=== PATIENT | male | born 1955 | race Caucasian/White ===

== ENCOUNTER 2020-10-27 07:45 | Outpatient (REF) | payer MEDICARE, MEDICAID, SELFPAY ==
[2020-10-27 12:14] LABS: Alanine Aminotransferase 14 U/L (0-40); Albumin Level 4.1 g/dL (3.5-5.0); Alkaline Phosphatase 85 U/L (39-117); Anion Gap 14 (12-20); Aspartate Amino Transferase 21 U/L (5-37); Bilirubin Total 0.8 mg/dL (0.0-1.0); Blood Urea Nitrogen 21 mg/dL (9-16); Calcium 9.1 mg/dL (8.4-10.2); Carbon Dioxide 27 mmol/L (22-29); Chloride 103 mmol/L (96-108); Cholesterol 189 mg/dL; Estimated Glomerular Filt Rate > 60; Glucose Fasting 103 mg/dL (60-99); HDL Cholesterol 40 mg/dL; LDL Cholesterol Calculated 131 mg/dl; Potassium 3.9 mmol/L (3.3-5.1); Sodium 140 mmol/L (135-145); Total Protein 7.2 g/dL (6.5-8.0); Triglycerides 93 mg/dL
[2020-10-27 12:15] LABS: Prostate Specific Antigen Scr 2.87 ng/mL (<0.05-4.0); TSH reflex Free T4 0.81 uIU/mL (0.32-4.0)
== END 2020-10-27 07:46 | disposition home or self-care (01) ==
LOC: HO.HMGCLDS 07:45
PROVIDERS: PCP Nurse Practitioner Family; Visit Provider Nurse Practitioner Family
DX: I10 Essential (primary) hypertension (principal); Z12.5 Encounter for screening for malignant neoplasm of prostate
CPT/HCPCS: 36415; 80053; 80061; 84153; 84443

== ENCOUNTER 2021-05-11 07:27 | Outpatient (REF) | payer MEDICARE, MEDICAID, SELFPAY ==
[2021-05-11 11:15] LABS: MANUAL DIFF FLAG NO
[2021-05-11 11:39] LABS: Basophils Absolute Auto 0.1 X10*3/uL (0.0-0.2); Basophils Percent Auto 1.1 % (0-2); Eosinophils Absolute Auto 0.3 X10*3/uL (0.0-0.4); Eosinophils Percent Auto 3.7 % (0-4); Hematocrit 44.9 % (42-52); Hemoglobin 15.2 g/dl (14.0-18.0); Imm Gran Abs Auto 0.14 X10*3/uL (0.00-0.03); Imm Gran Pct Auto 1.6 % (0.0-0.4); Lymphocytes Absolute Auto 2.1 X10*3/uL (1.2-4.9); Lymphocytes Percent Auto 23.9 % (20-40); Mean Corpuscular HGB Conc 33.9 g/dl (31.0-36.0); Mean Corpuscular Hemoglobin 29.2 pg (27.0-33.0); Mean Corpuscular Volume 86.3 fL (80-98); Mean Platelet Volume 8.8 fL (9.4-12.4); Monocytes Absolute Auto 0.8 X10*3/uL (0.1-1.2); Monocytes Percent Auto 9.3 % (2-11); Neutrophils Absolute Auto 5.3 X10*3/uL (2.0-8.3); Neutrophils Percent Auto 60.4 % (45-73); Platelet Count 289 X10*3/uL (160-400); Red Cell Distribution Width 13.4 % (11.0-16.0); White Blood Count 8.7 X10*3/uL (4.8-10.8)
[2021-05-11 11:47] LABS: Appearance Urine CLEAR; Color Urine YELLOW; Glucose Urine UA NEG (NEG); Leukocyte Esterase Urine NEG (NEG); Nitrite Urine NEG (NEG); Urine Blood NEG (NEG); Urine Ketones NEG (NEG); Urine Protein NEG (NEG-TRACE)
[2021-05-11 12:08] LABS: Ferritin 68 ng/mL (20-250); TSH reflex Free T4 0.95 uIU/mL (0.32-4.0)
[2021-05-11 12:16] LABS: Alanine Aminotransferase 18 U/L (0-40); Albumin Level 4.1 g/dL (3.5-5.0); Alkaline Phosphatase 77 U/L (39-117); Anion Gap 11 (12-20); Aspartate Amino Transferase 22 U/L (5-37); Bilirubin Total 0.9 mg/dL (0.0-1.0); Blood Urea Nitrogen 25 mg/dL (9-16); Calcium 9.5 mg/dL (8.4-10.2); Carbon Dioxide 26 mmol/L (22-29); Chloride 107 mmol/L (96-108); Cholesterol 189 mg/dL; Estimated Glomerular Filt Rate > 60; Glucose Fasting 120 mg/dL (60-99); HDL Cholesterol 42 mg/dL; Iron 73 mcg/dL (45-160); LDL Cholesterol Calculated 123 mg/dl; Percent Iron Saturation 21 % (15-50); Potassium 3.9 mmol/L (3.3-5.1); Sodium 140 mmol/L (135-145); Total Iron Binding Capacity 350 mcg/dL (228-428); Total Protein 7.2 g/dL (6.5-8.0); Triglycerides 120 mg/dL; Unsaturated Iron Binding 277 ug/dL
[2021-05-11 12:21] LABS: Folate 15.3 ng/mL (> or = 4.0); Vitamin B12 852 pg/mL (200-900)
[2021-05-17 12:45] LABS: Testosterone, Free 28.2 pg/mL (35.0-155.0); Testosterone, Total 222 ng/dL (250-1100)
== END 2021-05-11 07:28 | disposition home or self-care (01) ==
LOC: HO.HMGCLDS 07:27
PROVIDERS: PCP Nurse Practitioner Family; Visit Provider Nurse Practitioner Family
DX: R53.83 Other fatigue (principal)
CPT/HCPCS: 36415; 80053; 80061; 81003; 82607; 82728; 82746; 83540; 84402; 84403; 84443; 85025

== ENCOUNTER 2022-07-23 08:02 | Outpatient (REF) | payer OTHER, MEDICAID, SELFPAY ==
[2022-07-23 11:14] LABS: MANUAL DIFF FLAG NO
[2022-07-23 11:19] LABS: Appearance Urine Turbid; Color Urine Yellow; Glucose Urine UA Negative (Negative); Leukocyte Esterase Urine Small (1+) (Negative); Nitrite Urine Negative (Negative); PH 5.5 (5.0-9.0); Specific Gravity - Urine 1.025 (1.005-1.025); UMIC TRIGGER UACC YES; Urine Blood Negative (Negative); Urine Ketones Negative (Negative); Urine Protein Negative (Neg-Trace)
[2022-07-23 11:25] LABS: Bacteria Urine None Seen (None Seen); Hyaline Casts Urine 0-2 /LPF (0-2); RBC Urine 0-2 /HPF (0-2); Squamous Epithelial Cell Urine 0-2 /HPF (0-2); UACC Culture Trigger YES
[2022-07-23 11:36] LABS: Basophils Absolute Auto 0.2 X10*3/uL (0.0-0.2); Basophils Percent Auto 1.8 % (0-2); Eosinophils Absolute Auto 0.3 X10*3/uL (0.0-0.4); Eosinophils Percent Auto 3.6 % (0-4); Hematocrit 45.9 % (42.0-52.0); Imm Gran Pct Auto 1.1 % (0.0-0.4); Lymphocytes Absolute Auto 1.9 X10*3/uL (1.2-4.9); Lymphocytes Percent Auto 21.4 % (20-40); Mean Corpuscular HGB Conc 32.7 g/dl (31.0-36.0); Mean Corpuscular Hemoglobin 28.7 pg (27.0-33.0); Mean Corpuscular Volume 87.8 fL (80.0-98.0); Mean Platelet Volume 8.8 fL (9.4-12.4); Monocytes Absolute Auto 0.8 X10*3/uL (0.1-1.2); Monocytes Percent Auto 8.8 % (2-11); Neutrophils Absolute Auto 5.7 x10*3/uL (2.0-8.3); Neutrophils Percent Auto 63.3 % (45-73); Platelet Count 333 X10*3/uL (160-400); Red Blood Count 5.23 X10*6/uL (4.60-5.80); Red Cell Distribution Width 13.2 % (11.0-16.0)
[2022-07-23 13:06] LABS: Alanine Aminotransferase 16 U/L (0-40); Alkaline Phosphatase 84 U/L (39-117); Anion Gap 12 (12-20); Aspartate Amino Transferase 19 U/L (5-37); Bilirubin Total 0.7 mg/dL (0.0-1.0); Blood Urea Nitrogen 28 mg/dL (9-16); Calcium 9.4 mg/dL (8.4-10.2); Carbon Dioxide 28 mmol/L (22-29); Chloride 104 mmol/L (96-108); Cholesterol 186 mg/dL; Estimated Glomerular Filt Rate > 60; Glucose Fasting 143 mg/dL (60-99); HDL Cholesterol 38 mg/dL; LDL Cholesterol Calculated 127 mg/dl; Sodium 140 mmol/L (135-145); TSH reflex Free T4 0.73 uIU/mL (0.32-4.0); Triglycerides 106 mg/dL
== END 2022-07-23 08:03 | disposition home or self-care (01) ==
LOC: HO.HMGCLDS 08:02
PROVIDERS: PCP Nurse Practitioner Family; Visit Provider Nurse Practitioner Family
DX: I10 Essential (primary) hypertension (principal)
CPT/HCPCS: 36415; 80053; 80061; 81001; 84443; 85025; 87086

== ENCOUNTER 2022-07-26 07:49 | Outpatient (REF) | payer OTHER, MEDICAID, SELFPAY ==
[2022-07-26 11:47] LABS: Alanine Aminotransferase 15 U/L (0-40); Alkaline Phosphatase 85 U/L (39-117); Anion Gap 10 (12-20); Aspartate Amino Transferase 18 U/L (5-37); Bilirubin Total 0.7 mg/dL (0.0-1.0); Blood Urea Nitrogen 25 mg/dL (9-16); Calcium 9.2 mg/dL (8.4-10.2); Carbon Dioxide 29 mmol/L (22-29); Chloride 102 mmol/L (96-108); Estimated Glomerular Filt Rate > 60; Glucose Fasting 142 mg/dL (60-99); Potassium 3.7 mmol/L (3.3-5.1); Sodium 137 mmol/L (135-145); Total Protein 6.9 g/dL (6.5-8.0)
[2022-07-26 12:11] LABS: Estimated Average Glucose 126 mg/dL
== END 2022-07-26 07:50 | disposition home or self-care (01) ==
LOC: HO.HMGCLDS 07:49
PROVIDERS: PCP Nurse Practitioner Family; Visit Provider Nurse Practitioner Family
DX: R73.01 Impaired fasting glucose (principal); I10 Essential (primary) hypertension
CPT/HCPCS: 36415; 80053; 83036

== ENCOUNTER 2023-05-09 08:27 | Outpatient (AMB) | payer OTHER, MEDICAID, SELFPAY ==
--- NOTE | 2023-05-09 08:31 | MHC.PC.OV ---
Vital Signs 05/09/23 08:34 Height 6 ft 1 in Weight 248 lb BMI 32.7 BP 120/82 Blood Pressure Location Rt brachial Position Sitting Pulse 74 Pulse Source Pulse Oximeter Pulse Oximetry (%) 96 Oxygen Delivery Method Room Air Intake Visit Reasons: 4 month follow up DM Allergies No Known Allergies Allergy (Verified 05/09/23 08:35) Medication List - Last Reconciled 05/09/23 by KAY Galicia alcohol swabs (Alcohol Prep Pads) 1 pad topically tid; atenolol 25 mg PO DAILY hydrochlorothiazide 25 mg PO QAM lisinopril 40 mg PO DAILY OneTouch Delica Plus Lancet (lancets) bid testing NS OneTouch Ultra Test (blood sugar diagnostic) bid testing NS OneTouch Ultra2 Meter (blood-glucose meter) BID testing NS sertraline 50 mg PO DAILY 90 days sildenafil (Viagra) 50 mg PO DAILY PRN 10 days Tobacco use date assessed: 05/09/23 Fall risk assessment: No Falls in past year Last assessed Fall Risk: 05/09/23 Dental Screening Dental Screen Date: 05/09/23 Did you have a dental visit in the last 12 months?: Yes Did you have a dental problem in the last 6 months where you did not have access to dental care?: No Was dental information given to patient?: Patient has dentist HPI 4 month follow up DM HPI Details Pt is a diabetic, on an ALEXANDRA. A1C in office today is 5.9. Due for microalbumin, this has been ordered. Denies polyuria, polydipsia, and neuropathy. Pt denies any signs and symptoms of hypoglycemia and does know how to correct it. Will start low-dose statin. Labs were already ordered, encouraged pt to have these drawn. [facility] Surgical History H/O colonoscopy History of total right hip replacement Family History Father Unknown family medical history Mother Unknown family medical history Social History Housing: House Alcohol intake: never Patient Tobacco Use Status: Former Tobacco user e-Cigarette/Vaping Use: Never Used Second Hand Smoke Exposure: No service: No Current occupational status: retired and disabled Cognitive needs: No Hearing needs: No Vision needs: Yes Questionnaire Thrive Questionnaire Date Thrive assessed: 02/01/22 AUDIT C Alcohol Use Questionnaire (AUDIT-C) 1. How often do you have a drink containing alcohol?: Never 3. How often do you have six or more drinks on one occasion?: Never Total Score: 0 Score Reviewed/Action Taken: No MERCEDES-7 AMB Questionnaire MERCEDES-7 Date MERCEDES - 7 assessed: 02/01/22 Source: Developed by Drs. Adrian Spears, Delmi Mendez, Jefry Morataya and colleagues, with an educational idalia from [employer]. Review of Systems Const Reports as per HPI Physical exam (Primary Care) Vital Signs: Last Vital Signs Pulse 74 05/09/23 08:34 BP 120/82 05/09/23 08:34 Pulse Ox 96 05/09/23 08:34 Oxygen Delivery Method Room Air 05/09/23 08:34 BMI result Body Mass Index 32.7 Tobacco/Smoking Status: Tobacco use Status Tobacco use date assessed 05/09/23 05/09/23 08:38 Patient Tobacco Use Status Former Tobacco user 05/09/23 08:38 e-Cigarette/Vaping Use Never Used 05/09/23 08:38 Thrive Assessment: Date of Thrive Assessment Date Thrive assessed 02/01/22 05/09/23 08:38 Const General: cooperative Nutritional Appearance: obese Orientation/consciousness: patient oriented x3 Resp Effort & Inspection: normal respiratory effort Auscultation: clear to auscultation bilaterally Cardio Rate: regular rate Rhythm: regular rhythm Heart sounds: S1 normal heart sound present and S2 normal heart sound present Neuro General: patient oriented x3 Extrem Other: bilat feet: + sensation with use of monofilament Psych Appearance: grossly normal Mental Status: mental status grossly normal Speech and movement: Normal speech and movement present Affect: normal affect Attitude: cooperative Thought process: Normal thought process present Thought content: Normal thought content present Insight: Good insight present (Psych) Judgement: Good judgement present (Psych) Results AMB Hemoglobin A1c AMB Hemoglobin A1c 5.9 % Last Edit by YANELIS Wick on 05/09/23 08:52 Results Reviewed Results Reviewed: Laboratory Last Values Hgb A1c (Clinic) 5.9 % (4.0-6.0) 05/09/23 08:51 Assessment and Plan Assessment & Plan (1) Diabetes: Code(s): E11.9 - Type 2 diabetes mellitus without complications Plan: Labs ordered Plan The patient agreed to the use of a biomedical engineering technologist for this encounter. Scribed for KAY Arana by Kiersten Monroe biomedical engineering technologist, on 05/09/2023 at 08:45 EST. Orders: Orders AMB Hemoglobin A1c Today Z13.9 - Encounter for screening, unspecified Medications: New rosuvastatin 5 mg PO DAILY 30 days 30 tabs 4RF Coding Level of Care Code Est Pt Level 3 (95016) Diagnoses Diabetes E11.9
[2023-05-09 08:34] VITALS: BP 120/82; PULSE 74; O2SAT 96; BMI 32.7
== END 2023-05-09 09:06 | disposition home or self-care (01) ==
PROVIDERS: PCP Nurse Practitioner Family; Visit Provider Nurse Practitioner Family
DX: E11.9 Type 2 diabetes mellitus without complications (principal)
CPT/HCPCS: 83036; 99213

== ENCOUNTER 2023-08-22 07:57 | Outpatient (AMB) | payer OTHER, MEDICAID, SELFPAY ==
--- NOTE | 2023-08-22 07:59 | A.OFFPC_ITS ---
Vital Signs 08/22/23 08:02 08/22/23 08:32 Height 6 ft 1 in Weight 244 lb BMI 32.2 BP 134/96 H 120/78 Blood Pressure Location Lt brachial Rt brachial Position Sitting Sitting Pulse 74 Pulse Source Pulse Oximeter Pulse Oximetry (%) 98 Oxygen Delivery Method Room Air Intake Visit Reasons: 3 month fu Intake Note: Patient here to follow up on diabetes. Allergies No Known Allergies Allergy (Verified 08/22/23 08:02) Tobacco use date assessed: 05/09/23 Fall risk assessment: No Falls in past year Last assessed Fall Risk: 08/22/23 HPI 3 month fu HPI Details Patient is here for follow-up for diabetes. He is due for labs and a microalbumin which were ordered back in December. I highly encouraged to get these labs drawn. Denies any polyuria, polydipsia, neuropathy. His eye exam is up-to-date. He understands and symptoms of hypoglycemia and how to correct it. His current A1c is 5.9. Pt is on a ALEXANDRA and a statin. He brought in several values from home, highest was 160. #2 pt reports dysphagia, with solids and liquids, pointing to his mid chest. He further reports more gas and ingestion. Will order a Upper GI Series. [facility] Surgical History H/O colonoscopy History of total right hip replacement Family History Father Unknown family medical history Mother Unknown family medical history Social History Housing: House Alcohol intake: never Patient Tobacco Use Status: Former Tobacco user e-Cigarette/Vaping Use: Never Used Second Hand Smoke Exposure: No service: No Current occupational status: retired and disabled Cognitive needs: No Hearing needs: No Vision needs: Yes Questionnaire Thrive Questionnaire Date Thrive assessed: 02/01/22 MERCEDES-7 AMB Questionnaire MERCEDES-7 Date MERCEDES - 7 assessed: 02/01/22 Source: Developed by Drs. Adrian Spears, Delmi Mendez, Jefry Morataya and colleagues, with an educational idalia from [employer]. Physical exam (Primary Care) Vital Signs: Last Vital Signs Pulse 74 08/22/23 08:02 BP 134/96 H 08/22/23 08:02 Pulse Ox 98 08/22/23 08:02 Oxygen Delivery Method Room Air 08/22/23 08:02 BMI result Body Mass Index 32.2 Tobacco/Smoking Status: Tobacco use Status Tobacco use date assessed 05/09/23 08/22/23 08:05 Patient Tobacco Use Status Former Tobacco user 08/22/23 08:05 e-Cigarette/Vaping Use Never Used 08/22/23 08:05 Thrive Assessment: Date of Thrive Assessment Date Thrive assessed 02/01/22 08/22/23 08:05 Const General: cooperative, healthy appearing and comfortable Resp Effort & Inspection: normal respiratory effort Auscultation: clear to auscultation bilaterally Cardio Rate: regular rate Rhythm: regular rhythm Heart sounds: S1 normal heart sound present, S2 normal heart sound present and no murmurs Psych Speech and movement: Normal speech and movement present Affect: normal affect Attitude: cooperative Insight: Good insight present (Psych) Judgement: Good judgement present (Psych) Results AMB Hemoglobin A1c AMB Hemoglobin A1c 5.9 % Last Edit by YANELIS Wick on 08/22/23 08 :23 Results Reviewed Results Reviewed: Laboratory Last Values Hgb A1c (Clinic) 5.9 % (4.0-6.0) 08/22/23 08:23 Assessment and Plan Assessment & Plan (1) Dysphagia: Code(s): R13.10 - Dysphagia, unspecified Plan: Upper GI series ordered (2) GERD (gastroesophageal reflux disease): Code(s): K21.9 - Gastro-esophageal reflux disease without esophagitis (3) Diabetes: Code(s): E11.9 - Type 2 diabetes mellitus without complications Plan continue same regime Orders: Orders FL upper GI series Today R13.10 - Dysphagia, unspecified AMB EKG-In Office Today K21.9 - Gastro-esophageal reflux disease without esophagitis, R13.10 - Dysphagia, unspecified AMB Hemoglobin A1c Today Z13.9 - Encounter for screening, unspecified Coding Level of Care Code Est Pt Level 3 (59650) Diagnoses Dysphagia R13.10 GERD (gastroesophageal reflux disease) K21.9 Diabetes E11.9
[2023-08-22 08:02] VITALS: BP 134/96; PULSE 74; O2SAT 98; BMI 32.2
[2023-08-22 08:32] VITALS: BP 120/78
== END 2023-08-22 10:44 | disposition home or self-care (01) ==
PROVIDERS: PCP Nurse Practitioner Family; Visit Provider Nurse Practitioner Family
DX: R13.10 Dysphagia, unspecified (principal); K21.9 Gastro-esophageal reflux disease without esophagitis; E11.9 Type 2 diabetes mellitus without complications; Z13.9 Encounter for screening, unspecified
CPT/HCPCS: 83036; 99213

== ENCOUNTER 2023-08-29 08:08 | Outpatient (REF) | payer MEDICARE, MEDICAID, SELFPAY | END 2023-08-29 08:09 | disposition home or self-care (01) | LOC: HO.HMGCLDS 08:08 | PROVIDERS: PCP Nurse Practitioner Family; Visit Provider Nurse Practitioner Family | DX: E11.9 Type 2 diabetes mellitus without complications (principal); R82.90 Unspecified abnormal findings in urine; Z12.5 Encounter for screening for malignant neoplasm of prostate | CPT/HCPCS: 36415; 80053; 80061; 81001; 82043; 82570; 84153; 84443; 85025; 87086 ==

== ENCOUNTER 2023-11-06 09:50 | Outpatient (REF) | payer MEDICARE, MEDICAID, SELFPAY ==
--- NOTE | ~2023-11-06 | FL_ITS ---
EXAMINATION: XR FLUOROSCOPY UPPER GI WITH AIR CLINICAL INFORMATION: Dysphagia COMPARISON: None TECHNIQUE: Fluoroscopic air contrast upper GI examination was performed utilizing standard techniques with thin and thick barium and effervescent granules. Numerous spot images were obtained. FINDINGS: Lateral cine images of the oropharynx and hypopharynx demonstrate normal swallow mechanism with normal epiglottic inversion and soft palate elevation. No tracheal penetration, glottic or subglottic aspiration identified. No nasopharyngeal reflux present. Hypopharyngeal structures appear normal without evidence of mass or diverticulum. There is mild cricopharyngeal achalasia present. Dual and single contrast images of the esophagus demonstrate normal caliber, contour, and mucosal pattern. No evidence of stricture, mass, or ulcerations identified. Esophageal peristalsis was normal. A small type I hiatal hernia is present. Gastroesophageal reflux is seen up to the midesophagus. Dual contrast and single contrast images of the stomach demonstrated a normal contour. No definite gastric rugal fold thickening. There are a few small areas of contrast pooling in the body the stomach that may represent small superficial apthous type ulcers. No masses are seen. Contrast freely passed into the gastric antrum and duodenal bulb without delay. Single and air-contrast images of the duodenal bulb demonstrate no abnormality. The duodenal sweep has a normal appearance, course, and mucosal fold appearance. The imaged proximal jejunum has a normal fold pattern and caliber. FLUOROSCOPY TIME: 4 minutes 47 seconds Number of Spot Images: 12 Number of Cine: 13 DOSE AREA PRODUCT: 4009 uGy-m2 (microgray-meter squared) FL/FL upper GI w air IMPRESSION: 1. Mild cricopharyngeal achalasia 2. Small to moderate sized type I hiatal hernia 3. Moderate gastroesophageal reflux 4. A few small areas of contrast pooling in the body of the stomach. These findings suggest small aphthous type erosions, and possible mild gastritis. Recommend correlation with EGD. This procedure was performed by Erlin Erwin PA-C, and supervised by Dr. Burgos
== END 2023-11-06 09:51 | disposition home or self-care (01) ==
LOC: HO.XRAY 09:50
PROVIDERS: PCP Nurse Practitioner Family; Visit Provider Nurse Practitioner Family
DX: R13.10 Dysphagia, unspecified (principal)
CPT/HCPCS: 74246

== ENCOUNTER → 2023-11-06 09:52 | Outpatient (BNV) | payer MEDICARE, MEDICAID, SELFPAY | PROVIDERS: PCP Nurse Practitioner Family; Visit Provider Physician Assistant Surgical | DX: R13.10 Dysphagia, unspecified (principal) | CPT/HCPCS: 74246 ==

== ENCOUNTER 2023-11-20 11:58 | Outpatient (AMB) | payer MEDICARE, MEDICAID, SELFPAY ==
--- NOTE | 2023-11-20 12:02 | A.OFFVIS_ITS ---
Intake Vital Signs 11/20/23 12:08 Height 6 ft 1 in Weight 255 lb BMI 33.6 BP 132/65 Blood Pressure Location Lt brachial Position Sitting Pulse 63 Intake Visit Reasons: Gastro-esophageal reflux disease without esoph Intake Note: Patient new consult for GERD. Patient cc: abdominal pain on and off, swallowing problems with both solid and liquid, and some diarrhea on and off. 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 Started noticing a few years ago that some certain foods get stuck in upper esophagus. Does not report sx are progressing - sx are with both solids and liquids. Often has to drink more liquid and/or belch to ease the sensation. No unintentional wieght loss, nausea or vomiting, no regurgitation. No changes in bowel habits. Has never had upper endoscopy. Gets q5y colos for fam hx and is up to date (Dr Jordin Miles) Fam hx: brother CRC at 35y.o PCP ordered UGIS which showed: 1. Mild cricopharyngeal achalasia 2. Small to moderate sized type I hiatal hernia 3. Moderate gastroesophageal reflux 4. A few small areas of contrast pooling in the body of the stomach. These findings suggest small aphthous type erosions, and possible mild gastritis. Recommend correlation with EGD. Has been started on omeprazole 20 BID by his PCP. PFSH Surgical History H/O colonoscopy History of total right hip replacement Family History Father Unknown family medical history Mother Unknown family medical history Social History Housing: House Alcohol intake: never Patient Tobacco Use Status: Former Tobacco user e-Cigarette/Vaping Use: Never Used Second Hand Smoke Exposure: No service: No Current occupational status: retired and disabled Cognitive needs: No Hearing needs: No Vision needs: Yes Review of Systems Const All systems reviewed & are unremarkable except as noted in HPI and below Physical Exam Vital Signs: Last Vital Signs Pulse 63 11/20/23 12:08 BP 132/65 11/20/23 12:08 BMI result Body Mass Index 33.6 NAD No overt resp distress Abd nondistended A/Ox3, normal gait Assessment & Plan Assessment & Plan (1) Abnormal barium swallow: Code(s): R93.3 - Abnormal findings on diagnostic imaging of other parts of digestive tract (2) Dysphagia: Code(s): R13.10 - Dysphagia, unspecified (3) Gastritis: Code(s): K29.70 - Gastritis, unspecified, without bleeding Plan Appears to have tight cricpharyngeus based on esophagogram + gastritis. Plan: - EGD with dil to be booked - Cont omeprazole 20 BID - Avoid NSAIDs and smoking FOllow up after EGD Coding Level of Care Code New Pt Level 4 (42863) Diagnoses Abnormal barium swallow R93.3 Dysphagia R13.10 Gastritis K29.70
[2023-11-20 12:08] VITALS: BP 132/65; PULSE 63; BMI 33.6
== END 2023-11-20 13:04 | disposition home or self-care (01) ==
PROVIDERS: PCP Nurse Practitioner Family; Visit Provider Internal Medicine
DX: R93.3 Abnormal findings on diagnostic imaging of other parts of digestive tract (principal); R13.10 Dysphagia, unspecified; K29.70 Gastritis, unspecified, without bleeding
CPT/HCPCS: 99204

== ENCOUNTER → 2023-11-20 11:58 | Outpatient (BNVA) | payer MEDICARE, MEDICAID, SELFPAY | PROVIDERS: PCP Nurse Practitioner Family; Visit Provider Internal Medicine | DX: R93.3 Abnormal findings on diagnostic imaging of other parts of digestive tract (principal); R13.10 Dysphagia, unspecified; K29.70 Gastritis, unspecified, without bleeding | CPT/HCPCS: 99202 ==

== ENCOUNTER 2023-11-26 08:45 | Outpatient (AMB) | payer MEDICARE, MEDICAID, SELFPAY ==
--- NOTE | 2023-11-26 08:46 | A.OFFPC_ITS ---
Vital Signs 11/26/23 08:50 Height 6 ft 1 in Weight 241 lb BMI 31.8 BP 112/78 Blood Pressure Location Rt brachial Position Sitting Pulse 71 Pulse Source Pulse Oximeter Pulse Oximetry (%) 98 Oxygen Delivery Method Room Air Intake Visit Reasons: 3 Month follow up Intake Note: Patient here for diabetes f/u. Allergies No Known Allergies Allergy (Verified 11/26/23 08:50) Medication List - Last Reconciled 11/26/23 by KAY Galicia alcohol swabs (Alcohol Prep Pads) 1 pad topically tid; amoxicillin 2,000 mg (4 x 500 mg) PO ONCE 1 day atenolol 25 mg PO DAILY hydrochlorothiazide 25 mg PO QAM lisinopril 40 mg PO DAILY omeprazole 20 mg PO BID OneTouch Delica Plus Lancet (lancets) bid testing NS OneTouch Ultra Test (blood sugar diagnostic) bid testing NS OneTouch Ultra2 Meter (blood-glucose meter) BID testing NS rosuvastatin 5 mg PO DAILY 30 days sertraline 50 mg PO DAILY 90 days sildenafil (Viagra) 50 mg PO DAILY PRN 10 days Tobacco use date assessed: 11/26/23 Fall risk assessment: No Falls in past year Last assessed Fall Risk: 11/26/23 Dental Screening Dental Screen Date: 11/26/23 Did you have a dental visit in the last 12 months?: Yes Did you have a dental problem in the last 6 months where you did not have access to dental care?: No Was dental information given to patient?: Patient has dentist HPI 3 Month follow up HPI Details Pt is a diabetic, on an ALEXANDRA and a statin. A1C in office today is 6.0. Microalbumin is up to date. Denies polyuria, polydipsia, and neuropathy. Pt denies any signs and symptoms of hypoglycemia and does know how to correct it. Pt has an upcoming eye exam. Pt c/o right heel pain. He reports the most pain when waking up. He reports that the pain improves somewhat throughout the day. ? plantar fasciitis. Will order XR. PFSH Surgical History H/O colonoscopy History of total right hip replacement Family History Father Unknown family medical history Mother Unknown family medical history Social History Housing: House Alcohol intake: never Patient Tobacco Use Status: Former Tobacco user e-Cigarette/Vaping Use: Never Used Second Hand Smoke Exposure: No service: No Current occupational status: retired and disabled Cognitive needs: No Hearing needs: No Vision needs: Yes Questionnaire Thrive Questionnaire Date Thrive assessed: 02/01/22 AUDIT C Alcohol Use Questionnaire (AUDIT-C) 1. How often do you have a drink containing alcohol?: Never 3. How often do you have six or more drinks on one occasion?: Never Total Score: 0 Score Reviewed/Action Taken: No MERCEDES-7 AMB Questionnaire MERCEDES-7 Date MERCEDES - 7 assessed: 02/01/22 Source: Developed by Drs. Adrian Spears, Delmi Mendez, Jefry Morataya and colleagues, with an educational idalia from [employer]. Review of Systems Const Reports as per HPI Physical exam (Primary Care) Vital Signs: Last Vital Signs Pulse 71 11/26/23 08:50 BP 112/78 11/26/23 08:50 Pulse Ox 98 11/26/23 08:50 Oxygen Delivery Method Room Air 11/26/23 08:50 BMI result Body Mass Index 31.8 Tobacco/Smoking Status: Tobacco use Status Tobacco use date assessed 11/26/23 11/26/23 08:53 Patient Tobacco Use Status Former Tobacco user 11/26/23 08:47 e-Cigarette/Vaping Use Never Used 11/26/23 08:47 Thrive Assessment: Date of Thrive Assessment Date Thrive assessed 02/01/22 11/26/23 08:47 Const General: cooperative Nutritional Appearance: obese Orientation/consciousness: patient oriented x3 Resp Effort & Inspection: normal respiratory effort Auscultation: clear to auscultation bilaterally Cardio Rate: regular rate Rhythm: regular rhythm Heart sounds: S1 normal heart sound present and S2 normal heart sound present Neuro General: patient oriented x3 Extrem Other: bilat feet: + sensation with use of monofilament, right foot: tenderness noted with dorsi flexion of toes and palpation of heels Psych Appearance: grossly normal Mental Status: mental status grossly normal Speech and movement: Normal speech and movement present Affect: normal affect Attitude: cooperative Thought process: Normal thought process present Thought content: Normal thought content present Insight: Good insight present (Psych) Judgement: Good judgement present (Psych) Results AMB Hemoglobin A1c AMB Hemoglobin A1c 6.0 % Last Edit by YANELIS Wick on 11/26/23 09 :14 Assessment and Plan Assessment & Plan (1) Diabetes: Code(s): E11.9 - Type 2 diabetes mellitus without complications Plan: Labs ordered (2) Pain of right heel: Code(s): M79.671 - Pain in right foot Plan: XR ordered Plan The patient agreed to the use of a medical insurance verifier for this encounter. Scribed for DELMA Arana-BC by Kiersten Monroe medical insurance verifier, on 11/26/2023 at 09:05 EST. Orders: Orders Comprehensive [place]. Panel Fast Today E11.9 - Type 2 diabetes mellitus without complications TSH reflex Free T4 Today E11.9 - Type 2 diabetes mellitus without complications UA CC w/rflx Micro + Cult Today E11.9 - Type 2 diabetes mellitus without complications XR foot RT 2V Today M79.671 - Pain in right foot AMB Hemoglobin A1c Today Z13.9 - Encounter for screening, unspecified Complete Blood Count Auto Diff Today E11.9 - Type 2 diabetes mellitus without complications Lipid Panel Today E11.9 - Type 2 diabetes mellitus without complications Coding Level of Care Code Est Pt Level 3 (90361) Diagnoses Diabetes E11.9 Pain of right heel M79.671
[2023-11-26 08:50] VITALS: BP 112/78; PULSE 71; O2SAT 98; BMI 31.8
== END 2023-11-26 09:22 | disposition home or self-care (01) ==
PROVIDERS: PCP Nurse Practitioner Family; Visit Provider Nurse Practitioner Family
DX: E11.9 Type 2 diabetes mellitus without complications (principal); M79.671 Pain in right foot
CPT/HCPCS: 83036; 99213

== ENCOUNTER 2023-11-26 09:23 | Outpatient (REF) | payer MEDICARE, MEDICAID, SELFPAY ==
--- NOTE | ~2023-11-26 | XR_ITS ---
EXAMINATION: XR FOOT, RIGHT CLINICAL INFORMATION: Right foot pain COMPARISON: None available. TECHNIQUE: AP, lateral, and oblique views of the right foot. FINDINGS: Upgoing great toe. Posterior calcaneal spurring. Mild degenerative spurring. No fracture or dislocation. No focal soft tissue abnormality. XR/XR foot RT 2V IMPRESSION: No acute bony pathology.
== END 2023-11-26 09:24 | disposition home or self-care (01) ==
LOC: HO.HMGCX 09:23
PROVIDERS: PCP Nurse Practitioner Family; Visit Provider Nurse Practitioner Family
DX: M79.671 Pain in right foot (principal)
CPT/HCPCS: 73620

== ENCOUNTER 2023-12-30 08:49 | Outpatient (REF) | payer MEDICARE, MEDICAID, SELFPAY ==
[2023-12-30 10:30] LABS: Appearance Urine Clear; Color Urine Yellow; Glucose Urine UA Negative (Negative); Leukocyte Esterase Urine Small (1+) (Negative); Nitrite Urine Negative (Negative); UMIC TRIGGER UACC YES; Urine Blood Negative (Negative); Urine Ketones Negative (Negative); Urine Protein Negative (Neg-Trace)
[2023-12-30 10:32] LABS: MANUAL DIFF FLAG NO
[2023-12-30 10:34] LABS: Bacteria Urine None Seen (None Seen); Hyaline Casts Urine 0-2 /LPF (0-2); RBC Urine 0-2 /HPF (0-2); Squamous Epithelial Cell Urine 0-2 /HPF (0-2); UACC Culture Trigger YES
[2023-12-30 10:43] LABS: Basophils Absolute Auto 0.1 X10*3/uL (0.0-0.2); Basophils Percent Auto 1.3 % (0-2); Eosinophils Absolute Auto 0.3 X10*3/uL (0.0-0.4); Hemoglobin 15.4 g/dl (14.0-18.0); Imm Gran Abs Auto 0.11 X10*3/uL (0.00-0.03); Imm Gran Pct Auto 1.3 % (0.0-0.4); Lymphocytes Absolute Auto 2.2 X10*3/uL (1.2-4.9); Lymphocytes Percent Auto 25.8 % (20-40); Mean Corpuscular HGB Conc 33.5 g/dl (31.0-36.0); Mean Corpuscular Hemoglobin 29.1 pg (27.0-33.0); Mean Platelet Volume 8.8 fL (9.4-12.4); Monocytes Absolute Auto 0.8 X10*3/uL (0.1-1.2); Monocytes Percent Auto 9.2 % (2-11); Neutrophils Absolute Auto 5.1 x10*3/uL (2.0-8.3); Neutrophils Percent Auto 59.4 % (45-73); Platelet Count 319 X10*3/uL (160-400); Red Blood Count 5.29 X10*6/uL (4.60-5.80); Red Cell Distribution Width 13.2 % (11.0-16.0); White Blood Count 8.6 X10*3/uL (4.8-10.8)
[2023-12-30 11:09] LABS: Alanine Aminotransferase 17 U/L (0-40); Albumin Level 4.1 g/dL (3.5-5.0); Alkaline Phosphatase 80 U/L (39-117); Anion Gap 14 (12-20); Aspartate Amino Transferase 20 U/L (5-37); Bilirubin Total 0.5 mg/dL (0.0-1.0); Blood Urea Nitrogen 29 mg/dL (9-16); Carbon Dioxide 27 mmol/L (22-29); Chloride 106 mmol/L (96-108); Cholesterol 193 mg/dL (<200); Estimated Glomerular Filt Rate > 60; Glucose Fasting 131 mg/dL (60-99); HDL Cholesterol 40 mg/dL (>40); LDL Cholesterol Calculated 136 mg/dL (<100); Potassium 4.4 mmol/L (3.3-5.1); Sodium 143 mmol/L (135-145); Total Protein 7.7 g/dL (6.5-8.0); Triglycerides 86 mg/dL (<150)
[2023-12-30 11:27] LABS: TSH reflex Free T4 0.76 uIU/mL (0.32-4.0)
== END 2023-12-30 08:50 | disposition home or self-care (01) ==
LOC: HO.HMGCLDS 08:49
PROVIDERS: PCP Nurse Practitioner Family; Visit Provider Nurse Practitioner Family
DX: E11.9 Type 2 diabetes mellitus without complications (principal); R82.90 Unspecified abnormal findings in urine
CPT/HCPCS: 36415; 80053; 80061; 81001; 84443; 85025; 87086

== ENCOUNTER 2024-01-06 08:14 | Outpatient (REF) | payer MEDICARE, MEDICAID, SELFPAY | END 2024-01-06 08:15 | disposition home or self-care (01) | LOC: HO.XRAY 08:14 | PROVIDERS: PCP Nurse Practitioner Family; Visit Provider Nurse Practitioner Family | DX: Z13.89 Encounter for screening for other disorder (principal) ==

== ENCOUNTER 2024-04-14 06:20 | Day surgery (SDC) | payer MEDICARE, MEDICAID, SELFPAY ==
--- NOTE | 2024-04-13 09:50 | HO.ANESPROP2 ---
Documented by User: Opal Snow NP 04/13/24 09:52 HPI - Anesthesia Eval Consult details Narrative: 69yo M for Upper Endoscopy with Balloon Dilitation with darwin DUNLAP Active Problems Active Problems: All Active Problems Pain of right heel (Acute) Gastritis (Acute) Abnormal barium swallow (Acute) PSA elevation (Acute) GERD (gastroesophageal reflux disease) (Acute) Dysphagia (Acute) Newly diagnosed diabetes (Acute) Diabetes (Acute) Elevated fasting blood sugar (Acute) Fatigue (Acute) Initial Medicare annual wellness visit (Acute) Screening PSA (prostate specific antigen) (Acute) HTN (hypertension) (Acute) Past Medical History Medical History Dysphagia GERD (gastroesophageal reflux disease) Diabetes HTN (hypertension) Family History Family History Father Unknown family medical history Mother Unknown family medical history Surgical History Surgical History H/O colonoscopy History of total right hip replacement Social History Social History Housing: House Alcohol intake: never Patient Tobacco Use Status: Former Tobacco user e-Cigarette/Vaping Use: Never Used Second Hand Smoke Exposure: No Use of substances other than those prescribed or required for medical reasons: No Are you DNR?: No Advance Directives: No Advance Directives Information Provided: Yes service: No Current occupational status: retired and disabled Cognitive needs: No Hearing needs: No Vision needs: Yes Meds Allergies Allergy/AdvReac Type Severity Reaction Status Date / Time No Known Allergies Allergy Verified 11/26/23 08:50 Exam Pertinent Lab Results Pertinent Lab Results: Laboratory Tests 12/30/23 08:57 WBC 8.6 Hgb 15.4 Hct 46.0 Plt Count 319 Sodium 143 Potassium 4.4 Chloride 106 Carbon Dioxide 27 BUN 29 H Creatinine 1.03 Assessment and Plan Assessment Anesthesia Assessment: Chart Reviewed Documented by User: Gaurang Kruger MD 04/14/24 07:33 PMFSH Past Medical History Medical History Dysphagia GERD (gastroesophageal reflux disease) Diabetes HTN (hypertension) Family History Family History Father Unknown family medical history Mother Unknown family medical history Family history of problems with anesthesia: No Surgical History Surgical History H/O colonoscopy History of total right hip replacement History of Problems with Anesthesia: No Social History Social History Housing: House Alcohol intake: never Patient Tobacco Use Status: Former Tobacco user e-Cigarette/Vaping Use: Never Used Second Hand Smoke Exposure: No Use of substances other than those prescribed or required for medical reasons: No Are you DNR?: No Advance Directives: No Advance Directives Information Provided: Yes service: No Current occupational status: retired and disabled Cognitive needs: No Hearing needs: No Vision needs: Yes Meds Allergies Allergy/AdvReac Type Severity Reaction Status Date / Time No Known Allergies Allergy Verified 11/26/23 08:50 Exam Airway Mallampati Class: II TM Dist: >3cm Neck ROM: Full Loose/Missing/Broken Teeth: Yes Assessment and Plan Assessment Anesthesia Assessment: Anesthesia Plan Discussed Final Anesthetic Review Family History of Problems with Anesthesia: No History of Problems with Anesthesia: No NPO: Yes ASA Class: II Final Preanesthetic Review: No Changes in Pt Med Stat, Meds/Allgs Chart Reviewed, Consent Obtained/Reviewed and Anes Risks/Benef Reviewed Patient Risk: Low Procedure Risk: Low Anesthetic Plan Anesthetic Plan: MAC: Disposition: Standard PACU
--- NOTE | 2024-04-14 06:45 | MHC.SHP ---
Pre-Procedural Eval Section A - 24 Hr Update-Section A only Date of Service: 04/14/24 Section B - Complete if H&P > 30 days Chief Complaint: Gastritis, unspecified, without bleeding,dysphagia Relevant Family History (Specify if Yes): No Relevant Social History: None Present Medications: see Short Stay Collaborative assessment Medical History: Significant History (GERD, DM) History of Previous Operations: Relevant previous surgery/procedure and date(s) (H/O colonoscopy History of total right hip replacement) Allergies: Allergies Allergy/AdvReac Type Severity Reaction Status Date / Time No Known Allergies Allergy Verified 11/26/23 08:50 Review of Systems Sugical H&P ROS: Negative: Constitution, Cardiovascular, Respiratory, Neurological, Psychiatric, Hem-Onc, Allergic/Immunologic, Gastrointestinal, Genitourinary, Musculoskeletal, Integumentary, Endocrine and Eyes/Ears/Nose/Throat Exam Surgical H&P Exam: Normal: HEENT, Normal: Heart, Normal: Lungs, Normal: Extremities, Normal: Abdomen, Normal: Skin and Normal: Neurological Plan Diagnosis/Plan: Unchanged I have reviewed the history and physical and performed a pertinent physical examination on my patient. No changes have occurred unless specified. Time Spent With Patient Time: Total time managing care of this patient today ____ minutes.
[2024-04-14 06:51] VITALS: BMI 32.5
[2024-04-14 07:06] VITALS: BP 144/80; PULSE 60; RESP 16; TEMP 36.3; O2SAT 98
[2024-04-14] MEDS: Lactated Ringers 1,000 ML 100 ML IVCONT (07:14)
--- NOTE | 2024-04-14 07:43 | W.PM.OPN ---
Operative Note Operative Note Date of Service: 04/14/24 Narrative: Procedure Description: EGD Indication: dysphagia Anesthesia: MAC FLEXIBLE TRANSORAL UPPER GASTROINTESTINAL ENDOSCOPY UPPER ENDOSCOPY Consent: Indications for the procedure and potential complications of bleeding, perforation, reaction to medications and missed diagnosis were discussed with the patient and informed consent was obtained. Instrument: Olympus GIF H 190 J mid size upper endoscope Monitoring: Vital signs and clinical assessment, continuous EKG monitoring, Pulse oximetry, Carbon Dioxide monitoring and blood pressure monitoring were done throughout the procedure. Procedure: The patient was placed in the left lateral decubitis position and pre-procedure medications were administered and a bite block was placed. The endoscope was inserted into the mouth and advanced under direct vision to the third part of duodenum. A careful inspection was made as the upper endoscope was withdrawn including a retroflexed examination of the proximal stomach; Findings and interventions are described below. Findings: Larynx:normal Esophagus: GE junction at 40 cm, diaphragm hiatus at 40 cm, midl esophagitis at GEJ, bx taken. Balloon dilation at LES and UES to 19 mm, with tear seen at LES. bx taken from distal esophagus Stomach: patchy erythema . Biopsies were obtained. Grade 2 flap valve on retroflexed examination of the cardia. Duodenum: Normal bulb and descending duodenum, Intervention: Biopsies as noted above, balloon dilation Impression/Findings: gastritis esophagitis esophageal stricture PLAN: check if on PPI, if not taking then commence low dose e.g pantoprazole 20 mg GERD precautions
[2024-04-14 08:05] VITALS: BP 107/70; PULSE 53; RESP 15; TEMP 36.1; O2SAT 97
[2024-04-14 08:20] VITALS: BP 115/90; PULSE 55; RESP 15; TEMP 36.1; O2SAT 96
== END 2024-04-14 08:51 | disposition home or self-care (01) ==
PROVIDERS: PCP Nurse Practitioner Family; Visit Provider Internal Medicine Gastroenterology
PROC: (CPT 43249; principal; 2024-04-14 07:30)
DX: K22.2 Esophageal obstruction (principal); K20.80 Other esophagitis without bleeding; K29.70 Gastritis, unspecified, without bleeding; K44.9 Diaphragmatic hernia without obstruction or gangrene; K21.9 Gastro-esophageal reflux disease without esophagitis; E11.9 Type 2 diabetes mellitus without complications; I10 Essential (primary) hypertension; Z79.899 Other long term (current) drug therapy; Z80.0 Family history of malignant neoplasm of digestive organs; Z87.891 Personal history of nicotine dependence
CPT/HCPCS: 43249; 43239; 88305; 88313; 88342; C1726; J2704

== ENCOUNTER → 2024-04-14 06:20 | Outpatient (BNV) | payer MEDICARE, MEDICAID, SELFPAY | PROVIDERS: PCP Nurse Practitioner Family; Visit Provider Internal Medicine Gastroenterology | DX: K22.2 Esophageal obstruction (principal); K20.90 Esophagitis, unspecified without bleeding; K29.70 Gastritis, unspecified, without bleeding | CPT/HCPCS: 43239; 43249 ==

== ENCOUNTER 2024-05-26 08:47 | Outpatient (AMB) | payer MEDICARE, MEDICAID, SELFPAY ==
[2024-05-26 08:49] VITALS: BP 118/86; PULSE 63; O2SAT 96; BMI 32.7
--- NOTE | 2024-05-26 08:49 | MHC.PC.OV ---
Vital Signs 05/26/24 08:49 Height 6 ft 1 in Weight 248 lb BMI 32.7 BP 118/86 Blood Pressure Location Rt brachial Position Sitting Pulse 63 Pulse Source Pulse Oximeter Pulse Oximetry (%) 96 Intake Visit Reasons: 6m F/U Intake Note: pt is here for 6 month follow up Allergies No Known Allergies Allergy (Verified 05/26/24 08:49) Medication List - Last Reconciled 05/26/24 by KAY Galicia alcohol swabs (Alcohol Prep Pads) 1 pad topically tid; amoxicillin 2,000 mg (4 x 500 mg) PO ONCE 1 day atenolol 25 mg PO DAILY hydrochlorothiazide 25 mg PO QAM lisinopril 40 mg PO DAILY OneTouch Delica Plus Lancet (lancets) bid testing NS OneTouch Ultra Test (blood sugar diagnostic) bid testing NS OneTouch Ultra2 Meter (blood-glucose meter) BID testing NS pantoprazole 20 mg PO DAILY rosuvastatin 5 mg PO DAILY 30 days sertraline 50 mg PO DAILY 90 days sildenafil (Viagra) 50 mg PO DAILY PRN 10 days Tobacco use date assessed: 11/26/23 Fall risk assessment: No Falls in past year Last assessed Fall Risk: 05/26/24 Dental Screening Dental Screen Date: 11/26/23 HPI 6m F/U HPI Details Pt is a diabetic, on an ALEXANDRA and a statin. A1C in office today is 6.0. Microalbumin is up to date. Denies polyuria, polydipsia, and neuropathy. Pt denies any signs and symptoms of hypoglycemia and does know how to correct it. Reports his eye exam is up to date. Pt understands the s/s of hypoglycemia and how to correct it. [facility] Medical History Diabetes Esophageal stricture Esophagitis Dysphagia GERD (gastroesophageal reflux disease) HTN (hypertension) Surgical History H/O colonoscopy History of total right hip replacement Family History Father Unknown family medical history Mother Unknown family medical history Social History Housing: House Alcohol intake: never Patient Tobacco Use Status: Former Tobacco user e-Cigarette/Vaping Use: Never Used Second Hand Smoke Exposure: No service: No Current occupational status: retired and disabled Cognitive needs: No Hearing needs: No Vision needs: Yes Questionnaire PHQ-9 Over the last 2 weeks, how often have you been bothered by any of the following problems? 1. Little interest or pleasure in doing things: not at all 2. Feeling down, depressed, or hopeless: not at all 3. Trouble falling or staying asleep, or sleeping too much: not at all 4. Feeling tired or having little energy: not at all 5. Poor appetite or overeating: not at all 6. Feeling bad about yourself - or that you are a failure or have let yourself or your family down: not at all 7. Trouble concentrating on things, such as reading the newspaper or watching television: not at all 8. Moving or speaking so slowly that other people could have noticed. Or the opposite - being so fidgety or restless that you have been moving around a lot more than usual: not at all 9. Thoughts that you would be better off or of hurting yourself in some way: not at all Total score: 0 Depression Screening Interpretation: Negative Depression Screening Done: Yes 33892 - PHQ-9 Billing: Yes Source: Developed by Drs. Adrian Spears, Delmi Mendez, Jefry Morataya and colleagues, with an educational idalia from [employer]. Thrive Questionnaire Date Thrive assessed: 05/26/24 I am a: Patient What is your living situation today?: I have a steady place to live Within the past 12 months, did the food you bought not last and you didn't have the money to get more?: Never true Within the past 12 months, did you worry whether your food would run out before you got money to buy more?: Never true Do you have trouble paying for medicines?: No Do you have trouble getting transportation to medical appointments?: No Do you have trouble paying your heating and electricity bill?: No Do you have trouble taking care of your child, family member or friend?: No Do you have trouble with day-to-day activities such as bathing, preparing meals, shopping, managing finances, etc.?: No Are you interested in more education?: No Please select the resources that you would like help with: None Currently or been in a relationship where the following occur: No concerns reported THRIVE Score: 0 AUDIT C Alcohol Use Questionnaire (AUDIT-C) 1. How often do you have a drink containing alcohol?: Never 3. How often do you have six or more drinks on one occasion?: Never Total Score: 0 Score Reviewed/Action Taken: Yes MERCEDES-7 AMB Questionnaire MERCEDES-7 Date MERCEDES - 7 assessed: 05/26/24 Feeling nervous, anxious, or on edge: 0 = Not at all Not being able to stop or control worryin = Not at all Worrying too much about different things: 0 = Not at all Trouble relaxin = Not at all Being so restless that it is hard to sit still: 0 = Not at all Becoming easily annoyed or irritable: 0 = Not at all Feeling afraid as if something awful might happen: 0 = Not at all Total MERCEDES-7 score (0-4 normal; 5-9 mild; 10-14 moderate; 15-21 severe): 0 Source: Developed by Drs. Adrian Spears, Delmi Mendez, Jefry Morataya and colleagues, with an educational idalia from [employer]. MERCEDES-7 Assessment Billing MERCEDES-7 Assessment Tool: MERCEDES-7 Assessment 59428 Review of Systems Const Reports as per HPI Physical exam (Primary Care) Vital Signs: Last Vital Signs Pulse 63 05/26/24 08:49 BP 118/86 05/26/24 08:49 Pulse Ox 96 05/26/24 08:49 BMI result Body Mass Index 32.7 Tobacco/Smoking Status: Tobacco use Status Tobacco use date assessed 11/26/23 05/26/24 08:49 Patient Tobacco Use Status Former Tobacco user 05/26/24 08:49 e-Cigarette/Vaping Use Never Used 05/26/24 08:49 PHQ-9: PHQ-9 Score PHQ-9: Total score 0 05/26/24 09:03 Depression Screening Interpretation: Negative Thrive Assessment: Date of Thrive Assessment Date Thrive assessed 05/26/24 05/26/24 08:54 Currently or been in a relationship where the following occur: No concerns reported Const General: cooperative Nutritional Appearance: obese Orientation/consciousness: patient oriented x3 Resp Effort & Inspection: normal respiratory effort Auscultation: clear to auscultation bilaterally Cardio Rate: regular rate Rhythm: regular rhythm Heart sounds: S1 normal heart sound present and S2 normal heart sound present Neuro General: patient oriented x3 Extrem Other: bilat feet: + sensation with use of monofilament, feet intact Psych Appearance: grossly normal Mental Status: mental status grossly normal Speech and movement: Normal speech and movement present Affect: normal affect Attitude: cooperative Thought process: Normal thought process present Thought content: Normal thought content present Insight: Good insight present (Psych) Judgement: Good judgement present (Psych) Results AMB Hemoglobin A1c AMB Hemoglobin A1c 6.0 % Last Edit by Gian Abernathy CMA on 05/26/24 09:04 Results Reviewed Results Reviewed: Laboratory Last Values Hgb A1c (Clinic) 6.0 % (4.0-6.0) 05/26/24 08:57 Coding Level of Care Code Est Pt Level 3 (37417) Diagnoses Diabetes E11.9 Additional Codes MERCEDES-7 Assessment Billing - MERCEDES-7 Assessment Tool: MERCEDES-7 Assessment 68305 ([id number])
== END 2024-05-26 09:31 | disposition home or self-care (01) ==
PROVIDERS: PCP Nurse Practitioner Family; Visit Provider Nurse Practitioner Family
DX: Z13.9 Encounter for screening, unspecified (principal); E11.9 Type 2 diabetes mellitus without complications

== ENCOUNTER → 2024-05-26 08:47 | Outpatient (BNVA) | payer MEDICARE, MEDICAID, SELFPAY | PROVIDERS: PCP Nurse Practitioner Family; Visit Provider Nurse Practitioner Family | DX: E11.9 Type 2 diabetes mellitus without complications (principal); I10 Essential (primary) hypertension | CPT/HCPCS: 83036; 96127; 99212 ==

== ENCOUNTER 2024-07-16 08:40 | Outpatient (REF) | payer MEDICARE, MEDICAID, SELFPAY ==
[2024-07-16 09:56] LABS: MANUAL DIFF FLAG NO
[2024-07-16 10:05] LABS: Basophils Absolute Auto 0.1 X10*3/uL (0.0-0.2); Basophils Percent Auto 1.5 % (0-2); Eosinophils Absolute Auto 0.3 X10*3/uL (0.0-0.4); Hemoglobin 14.9 g/dl (14.0-18.0); Imm Gran Abs Auto 0.13 X10*3/uL (0.00-0.03); Imm Gran Pct Auto 1.4 % (0.0-0.4); Lymphocytes Absolute Auto 2.1 X10*3/uL (1.2-4.9); Lymphocytes Percent Auto 22.9 % (20-40); Mean Corpuscular HGB Conc 33.9 g/dl (31.0-36.0); Mean Corpuscular Volume 85.6 fL (80.0-98.0); Mean Platelet Volume 8.8 fL (9.4-12.4); Monocytes Absolute Auto 0.8 X10*3/uL (0.1-1.2); Monocytes Percent Auto 9.2 % (2-11); Neutrophils Absolute Auto 5.6 x10*3/uL (2.0-8.3); Platelet Count 309 X10*3/uL (160-400); Red Blood Count 5.14 X10*6/uL (4.60-5.80); Red Cell Distribution Width 13.2 % (11.0-16.0); White Blood Count 9.1 X10*3/uL (4.8-10.8)
[2024-07-16 10:13] LABS: Appearance Urine Clear; Color Urine Yellow; Glucose Urine UA Negative (Negative); Leukocyte Esterase Urine Trace (Negative); Nitrite Urine Negative (Negative); PH 7.5 (5.0-9.0); UMIC TRIGGER UACC YES; Urine Blood Negative (Negative); Urine Ketones Negative (Negative); Urine Protein Negative (Neg-Trace)
[2024-07-16 10:27] LABS: Alanine Aminotransferase 23 U/L (0-40); Alkaline Phosphatase 91 U/L (39-117); Anion Gap 12 (12-20); Aspartate Amino Transferase 30 U/L (5-37); Bilirubin Total 0.5 mg/dL (0.0-1.0); Blood Urea Nitrogen 25 mg/dL (9-16); Calcium 9.6 mg/dL (8.4-10.2); Carbon Dioxide 27 mmol/L (22-29); Chloride 104 mmol/L (96-108); Cholesterol 184 mg/dL (<200); Estimated Glomerular Filt Rate > 60; Glucose Fasting 129 mg/dL (60-99); HDL Cholesterol 41 mg/dL (>40); LDL Cholesterol Calculated 126 mg/dL (<100); Potassium 3.8 mmol/L (3.3-5.1); Sodium 139 mmol/L (135-145); Total Protein 7.4 g/dL (6.5-8.0); Triglycerides 86 mg/dL (<150)
[2024-07-16 10:32] LABS: Bacteria Urine None Seen (None Seen); Hyaline Casts Urine 0-2 /LPF (0-2); RBC Urine 0-2 /HPF (0-2); Squamous Epithelial Cell Urine 0-2 /HPF (0-2); WBC Urine 0-5 /HPF (0-5)
[2024-07-16 10:46] LABS: TSH reflex Free T4 0.97 uIU/mL (0.32-4.0)
== END 2024-07-16 08:41 | disposition home or self-care (01) ==
LOC: HO.HMGCLDS 08:40
PROVIDERS: PCP Nurse Practitioner Family; Visit Provider Nurse Practitioner Family
DX: E11.9 Type 2 diabetes mellitus without complications (principal)
CPT/HCPCS: 36415; 80053; 80061; 81001; 84443; 85025

== ENCOUNTER 2024-07-21 10:07 | Outpatient (REF) | payer MEDICARE, MEDICAID, SELFPAY ==
[2024-07-21 13:46] LABS: Prostate Specific Antigen Scr 3.36 ng/mL (<0.05-4.0)
== END 2024-07-21 10:08 | disposition home or self-care (01) ==
LOC: HO.HMGCLDS 10:07
PROVIDERS: PCP Nurse Practitioner Family; Visit Provider Nurse Practitioner Family
DX: R97.20 Elevated prostate specific antigen [PSA] (principal); Z12.5 Encounter for screening for malignant neoplasm of prostate
CPT/HCPCS: 36415; 84153

== ENCOUNTER 2024-10-30 08:09 | Outpatient (REF) | payer MEDICARE, MEDICAID, SELFPAY ==
[2024-10-30 10:34] LABS: Alanine Aminotransferase 24 U/L (0-40); Albumin Level 4.1 g/dL (3.5-5.0); Alkaline Phosphatase 85 U/L (39-117); Anion Gap 10 (12-20); Aspartate Amino Transferase 25 U/L (5-37); Bilirubin Total 0.6 mg/dL (0.0-1.0); Blood Urea Nitrogen 29 mg/dL (9-16); Calcium 9.3 mg/dL (8.4-10.2); Carbon Dioxide 29 mmol/L (22-29); Chloride 105 mmol/L (96-108); Cholesterol 155 mg/dL (<200); Estimated Glomerular Filt Rate > 60; Glucose Fasting 129 mg/dL (60-99); HDL Cholesterol 42 mg/dL (>40); LDL Cholesterol Calculated 92 mg/dL (<100); Potassium 3.8 mmol/L (3.3-5.1); Sodium 140 mmol/L (135-145); Total Protein 7.9 g/dL (6.5-8.0); Triglycerides 108 mg/dL (<150)
== END 2024-10-30 08:10 | disposition home or self-care (01) ==
LOC: HO.HMGCLDS 08:09
PROVIDERS: PCP Nurse Practitioner Family; Visit Provider Nurse Practitioner Family
DX: E78.5 Hyperlipidemia, unspecified (principal)
CPT/HCPCS: 36415; 80053; 80061

== ENCOUNTER 2024-11-06 08:40 | Outpatient (REF) | payer MEDICARE, MEDICAID, SELFPAY ==
[2024-11-06 09:59] LABS: MANUAL DIFF FLAG NO
[2024-11-06 10:04] LABS: Basophils Absolute Auto 0.1 X10*3/uL (0.0-0.2); Basophils Percent Auto 1.5 % (0-2); Eosinophils Absolute Auto 0.3 X10*3/uL (0.0-0.4); Eosinophils Percent Auto 3.7 % (0-4); Hematocrit 43.8 % (42.0-52.0); Hemoglobin 15.3 g/dl (14.0-18.0); Imm Gran Abs Auto 0.09 X10*3/uL (0.00-0.03); Lymphocytes Percent Auto 23.2 % (20-40); Mean Corpuscular HGB Conc 34.9 g/dl (31.0-36.0); Mean Corpuscular Hemoglobin 29.5 pg (27.0-33.0); Mean Corpuscular Volume 84.6 fL (80.0-98.0); Mean Platelet Volume 8.7 fL (9.4-12.4); Monocytes Absolute Auto 0.8 X10*3/uL (0.1-1.2); Neutrophils Absolute Auto 5.3 x10*3/uL (2.0-8.3); Neutrophils Percent Auto 61.6 % (45-73); Platelet Count 297 X10*3/uL (160-400); Red Blood Count 5.18 X10*6/uL (4.60-5.80); Red Cell Distribution Width 13.1 % (11.0-16.0); White Blood Count 8.6 X10*3/uL (4.8-10.8)
[2024-11-06 10:59] LABS: Microalbum/Creatinine Ratio Ur 6.7 ug/mg cr (<30)
== END 2024-11-06 08:41 | disposition home or self-care (01) ==
LOC: HO.HMGCLDS 08:40
PROVIDERS: PCP Nurse Practitioner Family; Visit Provider Nurse Practitioner Family
DX: E11.9 Type 2 diabetes mellitus without complications (principal)
CPT/HCPCS: 36415; 82043; 82570; 85025

== ENCOUNTER 2024-11-24 08:16 | Outpatient (AMB) | payer MEDICARE, MEDICAID, SELFPAY ==
--- NOTE | 2024-11-24 08:18 | MHC.PC.OV ---
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 Required: No Accompanied by: Self / Same As Patient Allergies No Known Allergies Allergy (Verified 11/24/24 08:19) Tobacco use date assessed: 11/24/24 Fall risk assessment: No Falls in past year Last assessed Fall Risk: 11/24/24 Dental Screening Dental Screen Date: 11/24/24 Did you have a dental visit in the last 12 months?: Yes Did you have a dental problem in the last 6 months where you did not have access to dental care?: No Was dental information given to patient?: Patient has dentist HPI 6m f/u HPI Details Chief Complaint Follow-up for diabetes management History of Present Illness The patient is a 69-year-old male presenting with a follow-up for diabetes management. His diabetes has been well-managed, evidenced by an HbA1c of 6.5% during recent evaluations, suggesting appropriate control under his current therapeutic regimen. Renal function remains stable with recently normal results, and microalbumin screenings along with eye examinations are up to date, indicating adherence to recommended diabetic preventive care. The patient denies any symptoms suggestive of diabetic neuropathy, such as polyuria and polydipsia. Cardiovascular assessments encountered some challenges in auscultation, though the patient did not report active symptoms. Pulmonary assessment revealed clear lung chacko bilaterally. Sensory testing with the use of a monofilament indicated preserved sensation in both feet, with no evidence of neuropathic complications. Social History Health Maintenance - Recent HbA1c at 6.5% - Kidney function tests normal - Microalbuminuria screening up to date - Eye examinations up to date Review of Systems - Neurological: Denies neuropathy - Genitourinary: Denies polyuria, polydipsia Physical Exam General: Cooperative, healthy appearing, comfortable, no acute distress and well developed Orientation: Patient oriented x3 Limitations: No limitations Head: Normal to inspection Ears: Hearing grossly normal bilaterally Nose: Normal external nose present Face and sinus: Normal facial exam Eyes: Appearance normal, both eyes and all related structures Neck: Normal visual inspection and Yes full ROM Respiratory: Normal respiratory effort and able to speak in complete sentences. Clear to auscultation bilaterally Cardiovascular: Heart was difficult to auscultate, though, S1 S2 GI: Normal to inspection. Soft to palpation and nontender Skin: No rashes or lesions noted Neuro: Patient oriented x3. Positive sensation with use of monofilament Extremities: Feet were intact bilaterally, normal to inspection Results - Labs: HbA1c 6.5% - Tests and Diagnostics: Recent renal function tests normal, microalbuminuria screening up to date, eye examination up to date Plan 1. 5%, confirming effective glycemic control and no necessary changes in his therapeutic regimen. Renal evaluations reveal stable function, with routine microalbuminuria screenings showing satisfactory results. Regular eye exams are current, aiding in the early detection of possible diabetic complications. Monofilament sensory testing confirms no manifestation of neuropathy in the feet, suggesting continued effective preventive strategies. The therapeutic approach will remain consistent, with regular monitoring to ensure continued management success.: Discussion Notes I reviewed the patient's current diabetes management with a focus on maintaining glycemic control as evidenced by an HbA1c of 6.5%. I outlined the stability of his renal function and the accepted screening intervals for microalbuminuria and eye exams, highlighting their role in early complication detection. No adjustment to his regimen is needed at this time. I emphasized the importance of staying informed on diabetic foot care and the results of the sensory testing of his feet. We discussed the plan to continue the current course of treatment, with regular follow-up visits for monitoring and management adjustments as required in the future. Patient Instructions - Maintain current diabetes treatment regimen as prescribed. - Continue regular monitoring, including blood glucose checks. - Attend follow-up appointments as scheduled to assess diabetes management. - Inform me of any new or worsening symptoms immediately. - Continue foot care practices and monitoring as discussed. [facility] Medical History Diabetes Esophageal stricture Esophagitis Dysphagia GERD (gastroesophageal reflux disease) HTN (hypertension) Surgical History H/O colonoscopy History of total right hip replacement Family History Father Unknown family medical history Mother Unknown family medical history Social History Housing: House Alcohol intake: never Patient Tobacco Use Status: Former Tobacco user e-Cigarette/Vaping Use: Never Used Second Hand Smoke Exposure: No service: No Current occupational status: retired and disabled Cognitive needs: No Hearing needs: No Vision needs: Yes Questionnaire PHQ-9 Over the last 2 weeks, how often have you been bothered by any of the following problems? 1. Little interest or pleasure in doing things: not at all 2. Feeling down, depressed, or hopeless: not at all 3. Trouble falling or staying asleep, or sleeping too much: not at all 4. Feeling tired or having little energy: not at all 5. Poor appetite or overeating: not at all 6. Feeling bad about yourself - or that you are a failure or have let yourself or your family down: not at all 7. Trouble concentrating on things, such as reading the newspaper or watching television: not at all 8. Moving or speaking so slowly that other people could have noticed. Or the opposite - being so fidgety or restless that you have been moving around a lot more than usual: not at all 9. Thoughts that you would be better off or of hurting yourself in some way: not at all Total score: 0 Depression Screening Interpretation: Negative Depression Screening Done: Yes 83406 - PHQ-9 Billing: Yes Source: Developed by Drs. Adrian Spears, Delmi Mendez, Jefry Morataya and colleagues, with an educational idalia from [employer]. Thrive Questionnaire Date Thrive assessed: 11/24/24 I am a: Patient What is your living situation today?: I have a steady place to live Within the past 12 months, did the food you bought not last and you didn't have the money to get more?: Never true Within the past 12 months, did you worry whether your food would run out before you got money to buy more?: Never true Do you have trouble paying for medicines?: No Do you have trouble getting transportation to medical appointments?: No Do you have trouble paying your heating and electricity bill?: No Do you have trouble taking care of your child, family member or friend?: No Do you have trouble with day-to-day activities such as bathing, preparing meals, shopping, managing finances, etc.?: No Are you interested in more education?: No Please select the resources that you would like help with: None Currently or been in a relationship where the following occur: No concerns reported THRIVE Score: 0 AUDIT C Alcohol Use Questionnaire (AUDIT-C) 1. How often do you have a drink containing alcohol?: Never 3. How often do you have six or more drinks on one occasion?: Never Total Score: 0 Score Reviewed/Action Taken: Yes MERCEDES-7 AMB Questionnaire MERCEDES-7 Date MERCEDES - 7 assessed: 11/24/24 Feeling nervous, anxious, or on edge: 0 = Not at all Not being able to stop or control worryin = Not at all Worrying too much about different things: 0 = Not at all Trouble relaxin = Not at all Being so restless that it is hard to sit still: 0 = Not at all Becoming easily annoyed or irritable: 0 = Not at all Feeling afraid as if something awful might happen: 0 = Not at all Total MERCEDES-7 score (0-4 normal; 5-9 mild; 10-14 moderate; 15-21 severe): 0 Source: Developed by Drs. Adrian Spears, Delmi Mendez, Jefry Morataya and colleagues, with an educational idalia from [employer]. MERCEDES-7 Assessment Billing MERCEDES-7 Assessment Tool: MERCEDES-7 Assessment 62480 Physical exam (Primary Care) Vital Signs: Last Vital Signs Pulse 72 11/24/24 08:19 BP 122/84 11/24/24 08:19 Pulse Ox 96 11/24/24 08:19 Oxygen Delivery Method Room Air 11/24/24 08:19 BMI result Body Mass Index 33.5 Tobacco/Smoking Status: Tobacco use Status Tobacco use date assessed 11/24/24 11/24/24 08:20 Patient Tobacco Use Status Former Tobacco user 11/24/24 08:20 e-Cigarette/Vaping Use Never Used 11/24/24 08:20 PHQ-9: PHQ-9 Score PHQ-9: Total score 0 11/24/24 08:20 Depression Screening Interpretation: Negative Thrive Assessment: Date of Thrive Assessment Date Thrive assessed 11/24/24 11/24/24 08:20 Currently or been in a relationship where the following occur: No concerns reported Coding Level of Care Code Est Pt Level 3 (39093) Diagnoses Diabetes E11.9 Additional Codes MERCEDES-7 Assessment Billing - MERCEDES-7 Assessment Tool: MERCEDES-7 Assessment 44333 ([id number]) PHQ-9 - 10874 - PHQ-9 Billing: Yes ([id number]) Assessment & Plan Assessment & Plan (1) Diabetes: Code(s): E11.9 - Type 2 diabetes mellitus without complications Category: Medical Plan .
[2024-11-24 08:19] VITALS: BP 122/84; PULSE 72; O2SAT 96; BMI 33.5
== END 2024-11-24 09:12 | disposition home or self-care (01) ==
LOC: HO.HMCC 08:17
PROVIDERS: PCP Nurse Practitioner Family; Visit Provider Nurse Practitioner Family
DX: E11.9 Type 2 diabetes mellitus without complications (principal); Z13.9 Encounter for screening, unspecified

== ENCOUNTER → 2024-11-24 08:16 | Outpatient (BNVA) | payer MEDICARE, MEDICAID, SELFPAY | PROVIDERS: PCP Nurse Practitioner Family; Visit Provider Nurse Practitioner Family | DX: E11.9 Type 2 diabetes mellitus without complications (principal) | CPT/HCPCS: 83036; 96127; 99212 ==

== ENCOUNTER 2025-05-31 08:43 | Outpatient (REF) | payer MEDICARE, MEDICAID, SELFPAY ==
[2025-05-31 13:32] LABS: MANUAL DIFF FLAG NO
[2025-05-31 13:39] LABS: Appearance Urine Clear; Glucose Urine UA Negative (Negative); Hematocrit 45.0 % (42.0-52.0); Hemoglobin 15.6 g/dl (14.0-18.0); Imm Gran Abs Auto 0.08 X10*3/uL (0.00-0.03); Imm Gran Pct Auto 0.8 % (0.0-0.4); Lymphocytes Absolute Auto 2.1 X10*3/uL (1.2-4.9); Mean Corpuscular HGB Conc 34.7 g/dl (31.0-36.0); Mean Corpuscular Hemoglobin 29.8 pg (27.0-33.0); Mean Corpuscular Volume 85.9 fL (80.0-98.0); NRBC Abs Auto 0.000 X10*3/uL (0.0-0.012); NRBC Pct Auto 0.0 /100WBC (0.0-0.2); PH 7.5 (5.0-9.0); Platelet Count 310 X10*3/uL (160-400); Red Blood Count 5.24 X10*6/uL (4.60-5.80); Specific Gravity - Urine 1.020 (1.005-1.025); UMIC TRIGGER UACC YES; White Blood Count 10.2 X10*3/uL (4.8-10.8)
[2025-05-31 13:58] LABS: UACC Culture Trigger YES
[2025-05-31 14:02] LABS: Alanine Aminotransferase 23 U/L (0-40); Albumin Level 4.5 g/dL (3.5-5.0); Alkaline Phosphatase 78 U/L (39-117); Anion Gap 12 (12-20); Aspartate Amino Transferase 39 U/L (5-37); Blood Urea Nitrogen 27 mg/dL (9-16); Calcium 9.6 mg/dL (8.4-10.2); Carbon Dioxide 28 mmol/L (22-29); Chloride 103 mmol/L (96-108); Cholesterol 160 mg/dL (<200); Estimated Glomerular Filt Rate > 60; HDL Cholesterol 37 mg/dL (>40); Potassium 4.2 mmol/L (3.3-5.1); Sodium 139 mmol/L (135-145); Total Protein 7.8 g/dL (6.5-8.0); Triglycerides 158 mg/dL (<150)
== END 2025-05-31 08:44 | disposition home or self-care (01) ==
LOC: HO.HMGCLDS 08:43
PROVIDERS: PCP Nurse Practitioner Family; Visit Provider Nurse Practitioner Family
DX: E11.9 Type 2 diabetes mellitus without complications (principal); Z12.5 Encounter for screening for malignant neoplasm of prostate
CPT/HCPCS: 36415; 80053; 80061; 81001; 83036; 84153; 84443; 85025; 87086

== ENCOUNTER 2025-06-02 08:12 | Outpatient (AMB) | payer MEDICARE, MEDICAID, SELFPAY ==
--- NOTE | 2025-06-02 08:14 | A.OFFPC_ITS ---
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 History of Present Illness The patient is a 70-year-old male presenting with diabetes follow-up. He denies experiencing neuropathy, polyuria, polydipsia, fevers, chills, chest pain, or shortness of breath. His hemoglobin A1c is 6.2%, indicating good glycemic control. The patient is also due for preventative vaccinations, including Tdap and RSV, with the Tdap vaccination planned for today. The pharmacy will consider administering the influenza vaccination as well. Social History Health Maintenance - Tdap vaccination planned for today - RSV vaccination due - Influenza vaccination under considerat ion by pharmacy Review of Systems - Neurological: Denies neuropathy - Genitourinary: Denies polyuria - Endocrine: Denies polydipsia - Constitutional: Denies fevers, chills - Cardiovascular: Denies chest pain - Respiratory: Denies shortness of breat h Physical Exam General: Cooperative, healthy appearing, comfortable, no acute distress and well developed Orientation: Patient oriented x3 Limitations: No limitations Head: Normal to inspection Ears: Hearing grossly normal bilaterally Nose: Normal external nose present Face and sinus: Normal facial exam Eyes: Appearance normal, both eyes and all related structures Neck: Normal visual inspection and Yes full ROM Respiratory: Normal respiratory effort and able to speak in complete sentences. Clear to auscultation bilaterally Cardiovascular: Regular rate and rhythm. Normal S1 and S2 GI: Normal to inspection. Soft to palpation and nontender Skin: No rashes or lesions noted Neuro: Patient oriented x3 Extremities: Normal to inspection, feet intact bilaterally, positive sensation with use of monofilament Results - Labs: Hemoglobin A1c is 6.2% Plan 1. Diabetes Mellitus The patient's diabetes is well-controlled with a hemoglobin A1c of 6.2%. He denies any symptoms such as neuropathy, polyuria, or polydipsia. 2. Preventative Care The patient is scheduled to receive the Tdap vaccination today and is due for the RSV vaccination. The pharmacy will consider administering the influenza vaccination. [facility] Medical History Diabetes Esophageal stricture Esophagitis Dysphagia GERD (gastroesophageal reflux disease) HTN (hypertension) Surgical History H/O colonoscopy History of total right hip replacement Family History Father Unknown family medical history Mother Unknown family medical history Social History Housing: House Alcohol intake: never Patient Tobacco Use Status: Former Tobacco user e-Cigarette/Vaping Use: Never Used Second Hand Smoke Exposure: No service: No Current occupational status: retired and disabled Cognitive needs: No Hearing needs: No Vision needs: Yes Questionnaire PHQ-9 Over the last 2 weeks, how often have you been bothered by any of the following problems? 1. Little interest or pleasure in doing things: not at all 2. Feeling down, depressed, or hopeless: not at all 3. Trouble falling or staying asleep, or sleeping too much: not at all 4. Feeling tired or having little energy: not at all 5. Poor appetite or overeating: not at all 6. Feeling bad about yourself - or that you are a failure or have let yourself or your family down: not at all 7. Trouble concentrating on things, such as reading the newspaper or watching television: not at all 8. Moving or speaking so slowly that other people could have noticed. Or the opposite - being so fidgety or restless that you have been moving around a lot more than usual: not at all 9. Thoughts that you would be better off or of hurting yourself in some way: not at all Total score: 0 Depression Screening Interpretation: Negative Depression Screening Done: Yes 23451 - PHQ-9 Billing: Yes Source: Developed by Drs. Adrian Spears, Jefry Roque and colleagues, with an educational idalia from [employer]. Thrive Questionnaire Date Thrive assessed: 11/24/24 MERCEDES-7 AMB Questionnaire MERCEDES-7 Date MERCEDES - 7 assessed: 06/02/25 Feeling nervous, anxious, or on edge: 0 = Not at all Not being able to stop or control worryin = Not at all Worrying too much about different things: 0 = Not at all Trouble relaxin = Not at all Being so restless that it is hard to sit still: 0 = Not at all Becoming easily annoyed or irritable: 0 = Not at all Feeling afraid as if something awful might happen: 0 = Not at all Total MERCEDES-7 score (0-4 normal; 5-9 mild; 10-14 moderate; 15-21 severe): 0 Source: Developed by Drs. Adrian Spears, Jefry Roque and colleagues, with an educational idalia from [employer]. MERCEDES-7 Assessment Billing MERCEDES-7 Assessment Tool: MERCEDES-7 Assessment 55496 Physical exam (Primary Care) Vital Signs: Last Vital Signs Pulse 75 06/02/25 08:15 Resp 16 06/02/25 08:15 BP 122/72 06/02/25 08:15 Pulse Ox 96 06/02/25 08:15 Oxygen Delivery Method Room Air 06/02/25 08:15 BMI result Body Mass Index 33.1 Tobacco/Smoking Status: Tobacco use Status Tobacco use date assessed 06/02/25 06/02/25 08:20 Patient Tobacco Use Status Former Tobacco user 06/02/25 08:15 e-Cigarette/Vaping Use Never Used 06/02/25 08:15 PHQ-9: PHQ-9 Score PHQ-9: Total score 0 06/02/25 08:20 Depression Screening Interpretation: Negative Thrive Assessment: Date of Thrive Assessment Date Thrive assessed 11/24/24 06/02/25 08:15 Coding Level of Care Code Est Pt Level 3 (44721) Diagnoses Diabetes E11.9 Additional Codes MERCEDES-7 Assessment Billing - MERCEDES-7 Assessment Tool: MERCEDES-7 Assessment 14747 ([id number]) PHQ-9 - 97249 - PHQ-9 Billing: Yes ([id number]) Assessment & Plan Assessment & Plan (1) Diabetes: Code(s): E11.9 - Type 2 diabetes mellitus without complications Category: Medical Plan .
[2025-06-02 08:15] VITALS: BP 122/72; PULSE 75; RESP 16; O2SAT 96; BMI 33.1
== END 2025-06-02 08:49 | disposition home or self-care (01) ==
LOC: HO.HMCC 08:13
PROVIDERS: PCP Nurse Practitioner Family; Visit Provider Nurse Practitioner Family
DX: Z23 Encounter for immunization (principal); E11.9 Type 2 diabetes mellitus without complications

== ENCOUNTER → 2025-06-02 08:12 | Outpatient (BNVA) | payer MEDICARE, MEDICAID, SELFPAY | PROVIDERS: PCP Nurse Practitioner Family; Visit Provider Nurse Practitioner Family | DX: E11.9 Type 2 diabetes mellitus without complications (principal); Z23 Encounter for immunization; Z13.31 Encounter for screening for depression; Z13.39 Encounter for screening examination for other mental health and behavioral disorders | CPT/HCPCS: 90471; 90715; 96127; 99212 ==